=== PATIENT | female | born 1995 | race Caucasian/White ===

== ENCOUNTER 2023-07-08 13:08 | Inpatient (IN) ==
[2023-07-08] MEDS ORDERED: LIDOCAINE 1% LOCAL 20 ML VIAL INFIL PRN (14:25)
[2023-07-08] MEDS ORDERED: OXYTOCIN 30 UNITS/NSS 30 UNITS/500 ML BAG IV PRN ×2 (14:25)
--- NOTE | 2023-07-08 14:30 | History & Physical Report ---
Date of Service July 08, 2023 Assessment & Plan (1) Normal labor: (2) Thick meconium stained amniotic fluid: Plan admit, labs, iv. desires epidural, pit aug if needed reviewed with pt and family. Mec stained fluid reviewed. fhts categ 1 History of Present Illness Chief Complaint: leaking fluid since noon Primary Care Provider: JUAN FRANCISCO PCP 28yo at 40+wks cherelle presents to L&D with SROM, green fluid at noon. Patient is here with her sister, who does interpreting for her. She was interviewed by nursing using ipad director of archives. Noted leaking of fluid at noon. Feels her ctx are q3m. ?bloody fluid but nursing feels mec stained. +FM PNC c/b 1. hypothyroid PNL rh pos, ri, ,gbs neg OBH: g1 GYNH: nl paps no stds Allergies Allergy/AdvReac Type Severity Reaction Status Date / Time No Known Allergies Allergy Verified 07/08/23 13:52 Home Medications Medication Instructions Recorded Confirmed Type levothyroxine 75 mcg tablet 75 mcg PO DAILY #30 tabs 04/30/23 07/08/23 Rx metronidazole 500 mg tablet 500 mg PO BID 7 days #14 tabs 06/11/23 07/03/23 Rx Patient History Medical History (Updated 07/08/23 @ 14:29 by Coni Mcneil MD, FACOG) No known health problems Family History (Updated 04/17/23 @ 10:58 by Saadia Bowser) Mother Diabetes Social History (Updated 04/17/23 @ 11:00 by Saadia Bowser) Smoking Status: Never smoker Do You Dip or Chew Tobacco: No; Hx Alcohol Use: No Hx Substance Use: No Preferred Language: Carlee Communication Ability: 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 Beliefs That Will Affect Care: None marital status: marital status details: Spouse: Trever same number Current Living Situation: Spouse Current Living Situation Comment: Trever Mcneil current occupational status: unemployed Other Information That Helps Us Care for You: No Feels Safe at Home: Yes Safety Concerns: Feels Safe At This Time Assistive Devices: None Review of Systems as per Subjective / HPI Physical Exam Constitutional: WD/WN, vitals as above Respiratory: normal respiratory effort, lungs clear to auscultation Cardiovascular: Rate/Rhythm: regular rate and regular rhythm Gastrointestinal (Abdomen): soft gravid nt efw 7-8# Musculoskeletal: no edema nontender calves Neurologic: grossly normal Psychiatric: A+Ox3, euthymic affect Genitourinary: Manual OB Exam: + cervical dilation (3-4cm), + cervical effacement 90% and + station -2 OB Exam Monitor Tracing: + external FHT monitor used, + external uterine monitor used (q2-3), + category I and + normal FHT variability gross srom with mec fluid noted, thick/particulate Results & Data Vital Signs (Past 12 Hours) Vital Signs Pulse BP 07/08/23 13:39 84 123/75 Coding Level of Care Code None Diagnoses Normal labor O80; Z37.9 Thick meconium stained amniotic fluid P96.83
[2023-07-08 15:06] LABS: Hematocrit (blood only) 35.8 % (37.0-47.0); Hemoglobin 11.3 g/dl (12.0-16.0); Mean Corpuscular Hemoglobin 23.8 pg (25.0-34.0); Mean Corpuscular Hgb Conc 31.6 g/dL (32.0-36.0); Mean Corpuscular Volume 75.5 fL (80.0-100.0); Mean Platelet Volume 10.4 fL (9.4-12.4); Platelet Count 548 K/uL (130-400); RDW Coefficient of Variation 14.6 % (11.5-14.5); RDW Standard Deviation 39.7 fL (36.4-46.3); Red Blood Count 4.74 M/uL (4.20-5.40); White Blood Count 12.42 K/ul (4.8-10.8)
[2023-07-08] MEDS: LACTATED RINGER'S 1,000 ML IV PRN ×2 (15:25→18:00)
[2023-07-08] MEDS ORDERED: fentANYL 2 MCG/ML BUPIVacaine 0.125%-NSS 100ML BAG ONE (15:27)
[2023-07-08] MEDS ORDERED: BUPIVACAINE 0.25% PF 30 ML VIAL ONE (15:27)
[2023-07-08] MEDS ORDERED: LIDOCAINE 2%/EPINEPHRINE 1:200,000 20 ML PF ONE (15:27)
[2023-07-08] MEDS ORDERED: SODIUM CHLORIDE 0.9% PF INJ 10 ML VIAL ONE (15:27)
[2023-07-08] MEDS ORDERED: fentaNYL citrate PF 100 MCG/2 ML VIAL ONE (15:27)
[2023-07-08] MEDS ORDERED: ePHEDrine sulfate 50 MG/ML AMP ONE (15:27)
--- NOTE | 2023-07-08 15:49 | Anesthesiology Consultation ---
Date of Service July 08, 2023 Assessment & Plan (1) Encounter for pre-operative examination: Chart Review Chart Review: Acceptable Risk for Labor Epidural History Height/Weight Height: 5 ft 4 in Weight: 77.564 kg Allergies Allergy/AdvReac Type Severity Reaction Status Date / Time No Known Allergies Allergy Verified 07/08/23 13:52 Medications Home Medications Medication Instructions Recorded Confirmed Last Taken levothyroxine 75 mcg tablet 75 mcg PO DAILY #30 tabs 04/30/23 07/08/23 07/07/23 06:00 Active Medications Generic Name Dose Route Start Last Admin Trade Name Freq PRN Reason Stop Dose Admin Lactated Ringer's 1,000 mls @ 125 mls/hr 07/08/23 14:25 07/08/23 15:25 Lr IV 07/10/23 14:24 999 mls/hr .Q8H PRN Administration L&D Protocol Protocol Past Medical History Medical History No known health problems Past Family History Family History Mother Diabetes Social History Smoking Status: Never smoker Do You Dip or Chew Tobacco: No Hx Alcohol Use: No Hx Substance Use: No Physical Exam Vital Signs Last Vital Signs Pulse 84 07/08/23 13:39 BP 123/75 07/08/23 13:39 Testing Laboratory Results 07/08/23 14:45
[2023-07-08] MEDS ORDERED: fentANYL 2 MCG/ML BUPIVacaine 0.125%-NSS 100ML BAG EPI PRN (16:19)
[2023-07-08] MEDS ORDERED: BUPIVACAINE 0.25% PF 30 ML VIAL EPI STA (16:19)
[2023-07-08] MEDS ORDERED: ROPIVACAINE 0.5% PF 5 MG/ML 20 ML VIAL EPI PRN (16:19)
[2023-07-08] MEDS ORDERED: LIDOCAINE 2%/EPINEPHRINE 1:200,000 20 ML PF EPI STA (16:19)
[2023-07-08] MEDS ORDERED: ePHEDrine sulfate 50 MG/ML AMP IV PRN (16:19)
[2023-07-08] MEDS ORDERED: fentaNYL citrate PF 100 MCG/2 ML VIAL EPI PRN (16:19)
[2023-07-08] MEDS ORDERED: LIDOCAINE 2% MPF LOCAL 5 ML VIAL EPI PRN (16:19)
[2023-07-08] MEDS ORDERED: NALOXONE HCL 1 MG in SODIUM CHLORIDE 0.9% 1,000 ML IV PRN (16:19)
[2023-07-08] MEDS ORDERED: NALOXONE HCL 0.4 MG/1 ML VIAL/CARP IV PRN (16:19)
[2023-07-08] MEDS ORDERED: ONDANSETRON INJ 2 MG/ML 2 ML VIAL IV PRN (16:19)
[2023-07-08] MEDS ORDERED: SODIUM CHLORIDE 0.9% PF INJ 10 ML VIAL EPI STA (16:19)
[2023-07-08] MEDS ORDERED: fentaNYL citrate PF 100 MCG/2 ML VIAL EPI STA (16:19)
[2023-07-08] MEDS ORDERED: SODIUM CHLORIDE 0.9% PF INJ 10 ML VIAL EPI PRN (16:19)
[2023-07-08] MEDS ORDERED: BUPIVACAINE 0.25% PF 30 ML VIAL EPI PRN (16:19)
--- NOTE | 2023-07-08 19:35 | Labor Progress Brief Note ---
Date of Service July 08, 2023 Subjective comfortable with epidural Assessment & Plan (1) Normal labor: (2) Thick meconium stained amniotic fluid: Plan good cx change. fhts categ 1. spont labor Admission and Anticipated Discharge Date Admission Date: July 08, 2023 Physical Exam Constitutional: WD/WN, vitals as above Genitourinary: Manual OB Exam: + cervical dilation 6 cm, + cervical effacement 100%, + station 0 and + amniotic fluid (forebag arom) meconium Results & Data Vital Signs (Past 12 Hours) Vital Signs Temp Pulse Resp BP Pulse Ox 07/08/23 19:28 98 H 99 07/08/23 19:23 92 H 98 07/08/23 19:18 100 H 98 07/08/23 19:16 88 141/69 H 07/08/23 19:13 89 99 07/08/23 19:12 98.8 F 18 07/08/23 19:08 107 H 99 07/08/23 19:03 89 98 07/08/23 19:01 96 H 119/57 L 07/08/23 18:58 95 H 98 07/08/23 18:53 92 H 99 07/08/23 18:48 105 H 99 07/08/23 18:45 90 121/73 07/08/23 18:43 103 H 100 07/08/23 18:38 93 H 100 07/08/23 18:33 93 H 100 07/08/23 18:30 20 07/08/23 18:30 20 07/08/23 18:28 93 H 99 07/08/23 18:23 89 100 07/08/23 18:18 95 H 100 07/08/23 18:16 93 H 144/60 H 07/08/23 18:13 96 H 100 07/08/23 18:08 98 H 100 07/08/23 18:03 100 H 100 07/08/23 17:58 89 100 07/08/23 17:53 95 H 100 07/08/23 17:48 100 H 100 07/08/23 17:43 103 H 99 07/08/23 17:38 90 100 07/08/23 17:33 86 99 07/08/23 17:30 84 20 113/73 07/08/23 17:28 88 100 07/08/23 17:23 71 100 07/08/23 17:18 84 100 07/08/23 17:15 65 107/68 07/08/23 17:13 74 100 07/08/23 17:08 81 100 07/08/23 17:03 90 100 07/08/23 17:02 92 H 92 07/08/23 16:58 100 07/08/23 16:58 90 07/08/23 16:58 82 109/71 07/08/23 16:54 83 108/68 07/08/23 16:53 79 100 07/08/23 16:48 92 H 104/63 100 07/08/23 16:44 77 108/65 07/08/23 16:43 80 100 07/08/23 16:38 91 H 99 07/08/23 16:37 76 92/52 L 07/08/23 16:33 82 100 07/08/23 16:32 76 96/56 L 07/08/23 16:30 98.1 F 80 20 93/52 L 07/08/23 16:28 99 07/08/23 16:28 89 07/08/23 16:28 77 92/52 L 07/08/23 16:26 87 97/53 L 07/08/23 16:25 96 H 93/50 L 07/08/23 16:23 99 07/08/23 16:23 80 07/08/23 16:23 91 H 95/56 L 07/08/23 16:20 89 108/53 L 07/08/23 16:18 82 100 07/08/23 16:17 102 H 115/59 L 07/08/23 16:14 95 H 124/82 07/08/23 16:13 91 H 100 07/08/23 16:08 97 H 100 07/08/23 16:03 98 H 99 07/08/23 16:01 89 88 L 07/08/23 15:58 99 H 100 07/08/23 15:53 104 H 20 100 07/08/23 13:39 84 123/75 Coding Level of Care Code None Diagnoses Normal labor O80; Z37.9 Thick meconium stained amniotic fluid P96.83
[2023-07-09] MEDS: LACTATED RINGER'S 1,000 ML IV PRN (00:59)
[2023-07-09] MEDS ORDERED: LIDOCAINE 2%/EPINEPHRINE 1:200,000 20 ML PF ONE (02:43)
[2023-07-09] MEDS ORDERED: ROPIVACAINE 0.5% 5 MG/ML 30 ML VIAL ONE (02:43)
--- NOTE | 2023-07-09 02:49 | Anesthesia Procedure Note ---
Date of Service July 09, 2023 Anesthesia Epidural Re-Dose Vital Signs Temp Pulse Resp BP Pulse Ox 36.8 C 106 H 18 113/55 L 97 07/09/23 00:25 07/09/23 02:43 07/09/23 00:25 07/09/23 02:01 07/09/23 02:43 Notes Pain Intensity: 0 Dilatation (cm): 9.0 Effacement (%): 100 Called by nursing to evaluate epidural as the patient is having increased pain. The epidural was re-dosed with the following medications (all medications via epidural route) after negative aspiration of the epidural catheter for CSF/HEME 1.2% lidocaine and 0.2% ropivacaine 7ml After Epidural Re-Dose Mental Status: alert / awake / arousable Pain: improving with treatment Airway Patency, RR, SpO2: stable & adequate BP & HR: stable & adequate Additional Notes: fhr stable
--- NOTE | 2023-07-09 03:32 | Labor Progress Brief Note ---
Date of Service July 09, 2023 Subjective pt was just sleeping but now complaining of pain and pressure. advised that pressure can be normal as labor progresses. nursing had that pt was 10cm, see my exam below. her sister does speak for pt alot. in fact, pt not even responding to my questions that sister is to translate to her, sister just speaks, therefore advised hard rock miner. while hard rock miner being obtained had to attend delivery and so nursing discussed pt pain level see below. of note ctx were spaced out so pit aug recently started. Assessment & Plan (1) Normal labor: (2) Thick meconium stained amniotic fluid: Plan discussed exam findings, and need for pitocin augmentation. that has recently begun. not ready to push yet. the sister keeps bringing up c/s and when i ask her where that idea is coming from she says its the patient. i explained no medical need for c/s at this time but she can demand c/s electively but if she is complaining of pain now, a c/s with an incision and surgery will likely be more painful and higher risks for bleeding and infection. she smiles at me and i don't know who is relaying pt thoughts to me accurately which is why i wanted portable power tool repairer ipad. after performing another delivery i checked in with pt nurse who did use the portable power tool repairer ipad but says the sister still tried to talk for the patient. ultimately they are aware that need more labor, will use pitocin, no medical need for c/s at this time, pushing will be work and pressure can be normal but due to upper abd pain with ctx, we did have anesth come to try to manage pt pain better. epidural rebolus given. fhts categ 1. has been mec stained fluid--no change. c/w pit. Admission and Anticipated Discharge Date Admission Date: July 08, 2023 Physical Exam Constitutional: WD/WN, vitals as above Genitourinary: Manual OB Exam: + cervical dilation 9 cm, + cervical effacement 100% and + station 0 OB Exam Monitor Tracing: + external FHT monitor used, + external uterine monitor used (q2-4 pit just started. ), + category I and + normal FHT variability Results & Data Vital Signs (Past 12 Hours) Vital Signs Temp Pulse Resp BP Pulse Ox 07/09/23 03:24 112 H 107/67 07/09/23 03:23 114 H 96 01/10/24 03:18 159 H 98 07/09/23 03:13 130 H 99 07/09/23 03:08 98 07/09/23 03:08 116 H 07/09/23 03:08 120 H 119/69 07/09/23 03:03 113 H 98 07/09/23 02:59 18 07/09/23 02:59 99.0 F 18 07/09/23 02:58 121 H 96 07/09/23 02:53 125 H 98 07/09/23 02:52 126 H 121/87 07/09/23 02:50 108 H 120/78 07/09/23 02:48 115 H 99 07/09/23 02:47 109 H 118/74 07/09/23 02:43 106 H 97 07/09/23 02:38 113 H 98 07/09/23 02:33 112 H 98 07/09/23 02:28 118 H 98 07/09/23 02:23 115 H 98 07/09/23 02:18 111 H 98 07/09/23 02:13 114 H 99 07/09/23 02:08 118 H 97 07/09/23 02:03 113 H 98 07/09/23 02:01 111 H 113/55 L 07/09/23 01:58 116 H 98 07/09/23 01:53 111 H 97 07/09/23 01:48 119 H 98 07/09/23 01:47 112 H 120/70 07/09/23 01:43 117 H 97 07/09/23 01:38 121 H 98 07/09/23 01:33 119 H 96 07/09/23 01:31 103 H 116/64 07/09/23 01:28 112 H 97 07/09/23 01:23 114 H 97 07/09/23 01:18 110 H 96 07/09/23 01:16 105 H 117/75 07/09/23 01:13 102 H 97 07/09/23 01:08 98 H 97 07/09/23 01:03 106 H 96 07/09/23 01:00 105 H 121/73 07/09/23 00:58 105 H 97 07/09/23 00:53 102 H 97 07/09/23 00:48 117 H 96 07/09/23 00:47 108 H 117/74 07/09/23 00:43 110 H 97 07/09/23 00:38 98 H 97 07/09/23 00:33 100 H 97 07/09/23 00:31 108 H 118/74 07/09/23 00:28 103 H 97 07/09/23 00:25 98.2 F 18 07/09/23 00:23 106 H 97 07/09/23 00:18 113 H 98 07/09/23 00:16 116 H 129/71 07/09/23 00:13 128 H 98 07/09/23 00:08 130 H 100 07/09/23 00:03 135 H 95 07/09/23 00:00 107 H 115/57 L 07/08/23 23:58 128 H 100 07/08/23 23:53 104 H 99 07/08/23 23:48 102 H 99 07/08/23 23:45 103 H 122/65 07/08/23 23:43 101 H 100 07/08/23 23:38 117 H 100 07/08/23 23:33 92 H 100 07/08/23 23:31 93 H 121/65 07/08/23 23:28 110 H 100 07/08/23 23:23 103 H 100 07/08/23 23:18 95 H 99 07/08/23 23:15 99 H 117/57 L 07/08/23 23:13 97 H 100 07/08/23 23:08 88 99 07/08/23 23:03 100 H 100 07/08/23 23:01 95 H 126/76 07/08/23 22:58 101 H 99 07/08/23 22:53 102 H 100 07/08/23 22:52 18 07/08/23 22:52 98.8 F 18 07/08/23 22:48 102 H 99 07/08/23 22:46 99 H 113/67 07/08/23 22:43 95 H 99 07/08/23 22:38 103 H 98 07/08/23 22:33 98 H 98 07/08/23 22:30 98 H 108/73 07/08/23 22:28 101 H 98 07/08/23 22:23 100 H 98 07/08/23 22:18 102 H 99 07/08/23 22:15 104 H 117/78 07/08/23 22:13 98 H 99 07/08/23 22:08 101 H 99 07/08/23 22:03 98 H 99 07/08/23 22:01 98 H 115/73 07/08/23 21:58 99 H 98 07/08/23 21:53 98 H 98 07/08/23 21:48 99 H 99 07/08/23 21:47 110 H 106/74 07/08/23 21:43 107 H 99 07/08/23 21:38 105 H 98 07/08/23 21:33 101 H 99 07/08/23 21:31 98 H 108/71 07/08/23 21:28 106 H 98 07/08/23 21:23 106 H 100 07/08/23 21:18 102 H 98 07/08/23 21:16 96 H 97/52 L 07/08/23 21:15 18 07/08/23 21:15 98.8 F 18 07/08/23 21:13 96 H 98 07/08/23 21:08 93 H 98 07/08/23 21:03 97 H 98 07/08/23 21:01 102 H 106/59 L 07/08/23 20:58 91 H 98 07/08/23 20:53 85 97 07/08/23 20:48 85 98 07/08/23 20:46 84 101/57 L 07/08/23 20:43 84 98 07/08/23 20:38 83 99 07/08/23 20:33 91 H 99 07/08/23 20:32 93 H 104/64 07/08/23 20:28 89 99 07/08/23 20:23 94 H 99 07/08/23 20:18 90 98 07/08/23 20:15 90 105/74 07/08/23 20:13 87 99 07/08/23 20:08 92 H 97 07/08/23 20:03 91 H 98 07/08/23 20:01 87 100/53 L 07/08/23 19:58 93 H 98 07/08/23 19:53 92 H 97 07/08/23 19:48 92 H 98 07/08/23 19:46 89 102/56 L 07/08/23 19:43 93 H 99 07/08/23 19:38 90 98 07/08/23 19:33 93 H 99 07/08/23 19:28 98 H 99 07/08/23 19:23 92 H 98 07/08/23 19:18 100 H 98 07/08/23 19:16 88 141/69 H 07/08/23 19:13 89 99 07/08/23 19:12 98.8 F 18 07/08/23 19:08 107 H 99 07/08/23 19:03 89 98 07/08/23 19:01 96 H 119/57 L 07/08/23 18:58 95 H 98 07/08/23 18:53 92 H 99 07/08/23 18:48 105 H 99 07/08/23 18:45 90 121/73 07/08/23 18:43 103 H 100 07/08/23 18:38 93 H 100 07/08/23 18:33 93 H 100 07/08/23 18:30 20 07/08/23 18:30 20 07/08/23 18:28 93 H 99 07/08/23 18:23 89 100 07/08/23 18:18 95 H 100 07/08/23 18:16 93 H 144/60 H 07/08/23 18:13 96 H 100 07/08/23 18:08 98 H 100 07/08/23 18:03 100 H 100 07/08/23 17:58 89 100 07/08/23 17:53 95 H 100 07/08/23 17:48 100 H 100 07/08/23 17:43 103 H 99 07/08/23 17:38 90 100 07/08/23 17:33 86 99 07/08/23 17:30 84 20 113/73 07/08/23 17:28 88 100 07/08/23 17:23 71 100 07/08/23 17:18 84 100 07/08/23 17:15 65 107/68 07/08/23 17:13 74 100 07/08/23 17:08 81 100 07/08/23 17:03 90 100 07/08/23 17:02 92 H 92 07/08/23 16:58 100 07/08/23 16:58 90 07/08/23 16:58 82 109/71 07/08/23 16:54 83 108/68 07/08/23 16:53 79 100 07/08/23 16:48 92 H 104/63 100 07/08/23 16:44 77 108/65 07/08/23 16:43 80 100 07/08/23 16:38 91 H 99 07/08/23 16:37 76 92/52 L 07/08/23 16:33 82 100 07/08/23 16:32 76 96/56 L 07/08/23 16:30 98.1 F 80 20 93/52 L 07/08/23 16:28 99 07/08/23 16:28 89 07/08/23 16:28 77 92/52 L 07/08/23 16:26 87 97/53 L 07/08/23 16:25 96 H 93/50 L 07/08/23 16:23 99 07/08/23 16:23 80 07/08/23 16:23 91 H 95/56 L 07/08/23 16:20 89 108/53 L 07/08/23 16:18 82 100 07/08/23 16:17 102 H 115/59 L 07/08/23 16:14 95 H 124/82 07/08/23 16:13 91 H 100 07/08/23 16:08 97 H 100 07/08/23 16:03 98 H 99 07/08/23 16:01 89 88 L 07/08/23 15:58 99 H 100 07/08/23 15:53 104 H 20 100 Coding Level of Care Code None Diagnoses Normal labor O80; Z37.9 Thick meconium stained amniotic fluid P96.83
--- NOTE | 2023-07-09 07:56 | Delivery Summary ---
Vaginal Delivery Summary Date of Service July 09, 2023 Vaginal Delivery Summary and 3rd Degree LAC (partial) The patient dilated to complete and began 2nd stage. She was pushing effectively, however baby with deep variables some with slow return to baseline for about 1hr. She was making progress but also complained of maternal exhaustion and requests vacuum assistance. Informed consent obtained to proceed with vacuum assistance. Bladder drained under sterile conditions for <50cc. With spontaneous next push pt delivered without assistance a viable male Apgars 8 and 9 via over partial third degree perineal laceration. Mouth and nose bulb suctioned at perineum. Thick meconium as previously noted, was seen. Shoulders and body delivered with ease. was vigorous and crying at . Cord clamped at 30 seconds of life and infant to maternal abdomen where the cord was then doubly clamped and cut. Placenta delivered spontaneously and intact, three-vessel cord. Hemostasis achieved with dilute pitocin and uterine massage. Laceration was repaired in layers with 2-0, 3-0 vicryl. Capsule of anal sphincter reinforced with 2-0 vicryl interrupted sutures. Cervix and sulci intact. EBL 300 cc. Mother and baby stable in recovery. [facility] [place] Charge Delivery Type Details: and 3rd Degree LAC (partial)
[2023-07-09] MEDS ORDERED: HYDROCORTISONE ACETATE 25 MG SUPP PR PRN (08:06)
[2023-07-09] MEDS ORDERED: ACETAMINOPHEN 325 MG TAB PO PRN (08:06)
[2023-07-09] MEDS ORDERED: bisacodyL 10 MG SUPP PR PRN (08:06)
[2023-07-09] MEDS ORDERED: oxyCODONE/ACETAMINOPHEN 5mg/325mg TAB PO PRN (08:06)
[2023-07-09] MEDS ORDERED: DIPHTHERIA/TETANUS/PERTUSSIS Vaccine (Tdap, Age 7+yrs) 0.5mL SYR/VL IM ONE (08:06)
[2023-07-09] MEDS ORDERED: BENZOCAINE 20% SPRY 85 APPLN/85 GM CAN EXT PRN (08:06)
[2023-07-09] MEDS ORDERED: OXYTOCIN 30 UNITS/NSS 30 UNITS/500 ML BAG IV PRN (08:06)
[2023-07-09] MEDS: DOCUSATE SODIUM 100 MG CAP PO SCH ×2 (08:39→19:31)
[2023-07-09] MEDS: LEVOTHYROXINE SODIUM 75 MCG TABLET PO SCH (08:39)
[2023-07-09] MEDS: PRENATAL VITAMIN 1 TAB PO SCH (08:39)
[2023-07-09] MEDS: FAMOTIDINE 20 MG TAB PO SCH ×2 (09:10→19:31)
[2023-07-09] MEDS: OXYTOCIN 20 UNITS/LR 1,002 ML IV SCH ×2 (09:10→18:30)
--- NOTE | 2023-07-09 10:22 | Anesthesia Procedure Note ---
Date of Service July 09, 2023 Anesthesia Post Epidural Note Vital Signs Vital Signs: Temp Pulse Resp BP Pulse Ox 36.9 C 131 H 20 102/58 L 100 07/09/23 07:00 07/09/23 09:53 07/09/23 07:00 07/09/23 09:53 07/09/23 07:23 Notes Mental Status: alert / awake / arousable Nausea / Vomiting: adequately controlled Pain: adequately controlled Airway Patency, RR, SpO2: stable & adequate BP & HR: stable & adequate Hydration State: stable & adequate Neuraxial Anesthesia: was administered and sensory block is resolving Anesthetic Complications: no major complications apparent and Pt Satisfied with anesthetic care Epidural: Removed without complications and With tip intact
[2023-07-09] MEDS: IBUPROFEN 600 MG TAB PO PRN (18:21)
[2023-07-10] MEDS: IBUPROFEN 600 MG TAB PO PRN ×3 (04:17→20:22)
[2023-07-10 06:43] LABS: Hematocrit (blood only) 17.1 % (37.0-47.0); Hemoglobin 5.8 g/dl (12.0-16.0)
[2023-07-10 07:13] LABS: Mean Corpuscular Hemoglobin 24.5 pg (25.0-34.0); Platelet Count 361 K/uL (130-400); RDW Coefficient of Variation 15.1 % (11.5-14.5); RDW Standard Deviation 41.6 fL (36.4-46.3); Red Blood Count 2.41 M/uL (4.20-5.40); White Blood Count 21.46 K/ul (4.8-10.8)
[2023-07-10] MEDS: LEVOTHYROXINE SODIUM 75 MCG TABLET PO SCH (07:36)
--- NOTE | 2023-07-10 08:00 | Obstetrical Progress Note ---
Date of Service <Ai Pascual MD - Last Filed: 07/10/23 08:00> July 10, 2023 Assessment & Plan <Ai Pascual MD - Last Filed: 07/10/23 08:00> (1) Encounter for care after hospital delivery: Patient with the above mentioned history and findings was evaluated at bedside and found awake, alert, oriented in all spheres, afebrile, and in no acute distress. Vital signs showed no fever and blood pressures remained stable, but several episodes of tachycardia recorded. Her blood type is O positive and most recent hemoglobin is low at 5.8 g/dL. Lab reported this may have been an error, which may be possible since patient is not experiencing any symptoms of anemia such as lightheadedness or fatigue. However, VS showing tachycardia. Will repeat CBC. If Hgb value is truly low (i.e. <7), consider transfusion of PRBC. Will also order bilateral LE US to rule out DVT given calf tenderness. She is GBS negative and rubella immune. Otherwise, patient is meeting the desired milestones for her pp course. Will continue routine pp care. All questions answered. <Tami Harrison MD - Last Filed: 07/10/23 08:27> (1) Encounter for care after hospital delivery: Subjective <Ai Pascual MD - Last Filed: 07/10/23 08:00> Sera is a 28y/o female who is now PPD # 1 following at 40+ weeks. Reports feeling well overall this morning. Refers mild abdominal cramping & 4- 5/10 pain well managed on analgesics. Voiding spontaneously. Has passed flatus but no bowel movements yet. Tolerating meals overnight and able to ambulate [place] e. Some persistent lochia with some improvement this morning. . Refers having bilateral lower extremity tenderness both at rest and with palpation. Denies other symptoms such as lightheadedness, dizziness, palpitations, headaches, fevers, chills, chest pain, SOB, or any other symptom. Constitutional: no fever, no chills or no sweats Denies shortness of breath or difficulty breathing Cardiovascular: no chest pain or no palpitations Breast: no breast pain Genitourinary (female): no dysuria Neurologic: no headache(s) Denies changes in vision Physical Exam <Ai Pascual MD - Last Filed: 07/10/23 08:00> General: Alert. Oriented to person, time, and place. Afebrile. No acute distress. Eyes: pupils equal and reactive to light bilaterally, extraocular movements intact. Cardiac: Regular rate and rhythm, no murmurs/rubs/gallops. Respiratory: Clear to auscultation bilaterally a/p, no wheezes/rales/rhonchi. No increased work of breathing. Symmetrical chest rise. No respiratory distress. Abdomen: Soft, nontender, nondistended. Bowel sounds present. Uterus: Uterine fundus firm, moderately tender, and palpable at umbilicus. Lower Extremities: No lower extremity edema or swelling. Bilateral calf pain on palpation. Psych: Euthymic affect. Mood and affect congruence. Regular speech rate and content. Results & Data <Ai Pascual MD - Last Filed: 07/10/23 08:00> Vital Signs (Past 12 Hours) Vital Signs Temp Pulse Resp BP O2 Del Method 07/10/23 04:14 36.7 C 123 H 14 130/83 Room Air 07/10/23 00:00 36.5 C 114 H 12 92/59 L Room Air Supervising Physician <Tami Harrison MD - Last Filed: 07/10/23 08:27> Co-Signing Physician Notes Resident Physician Supervision Note: I interviewed and examined the patient. Discussed with Dr. Pascual and agree with findings and plan as documented in the note. Any exceptions or clarifications are listed here: PP1 s/p . Notes some discomfort at perineum but manageable w/ meds. Notes calf pain bilaterally. VSS, exam benign. LE with minimal swelling and no erythema but tender - will get duplex. H/H this am is 5.8, lab told nursing they were concerned for falsely low so will recheck but if true will discuss blood transfusion Documented By: Tami Harrison MD
[2023-07-10 08:50] LABS: Hematocrit (blood only) 17.9 % (37.0-47.0); Hemoglobin 5.8 g/dl (12.0-16.0); Mean Corpuscular Hemoglobin 24.6 pg (25.0-34.0); Mean Corpuscular Hgb Conc 32.4 g/dL (32.0-36.0); Mean Corpuscular Volume 75.8 fL (80.0-100.0); Mean Platelet Volume 10.9 fL (9.4-12.4); Platelet Count 370 K/uL (130-400); RDW Coefficient of Variation 15.1 % (11.5-14.5); RDW Standard Deviation 40.9 fL (36.4-46.3); Red Blood Count 2.36 M/uL (4.20-5.40); White Blood Count 20.32 K/ul (4.8-10.8)
[2023-07-10] MEDS: DOCUSATE SODIUM 100 MG CAP PO SCH ×2 (08:56→20:22)
[2023-07-10] MEDS: PRENATAL VITAMIN 1 TAB PO SCH (08:56)
[2023-07-10 09:05] LABS: Mean Corpuscular Hgb Conc 33.9 g/dL (32.0-36.0)
[2023-07-10] MEDS ORDERED: SODIUM CHLORIDE 0.9% 250 ML IV PRN (09:20)
[2023-07-10] MEDS: FAMOTIDINE 20 MG TAB PO SCH ×2 (09:31→20:22)
--- NOTE | 2023-07-10 10:40 | Ultrasound Report ---
ULTRASOUND BILATERAL LOWER EXTREMITY VENOUS CLINICAL HISTORY: Leg pain. COMPARISON STUDY: No priors. TECHNIQUE: Real-time, grayscale, and color Doppler sonography of the deep veins of the right and left lower extremity was performed from the inguinal crease to the calf. Compression and augmentation wer e utilized. FINDINGS: There is no sonographic evidence of deep venous thrombosis identified in the right or left lower extremity. The common femoral, superficial femoral, and popliteal veins are patent and normally compressible bilaterally. The greater saphenous vein and the profunda femoris vein at the junction w ith the common femoral vein are clear in both legs. The visualized calf veins are patent bilaterally. IMPRESSION: There is no sonographic evidence of deep venous thrombosis identified in the right or lef t lower extremity. ACT 112: Negative or not required by law. Electronically signed by: Akhil Crockett M.D. 07/10/2023 10:39 AM
[2023-07-10 17:33] VITALS: O2SAT 100
[2023-07-10] MEDS ORDERED: POLYETHYLENE (MIRALAX) 17 GM PACK PO PRN (19:34)
[2023-07-11] MEDS: LEVOTHYROXINE SODIUM 75 MCG TABLET PO SCH (05:57)
[2023-07-11 06:12] LABS: Hematocrit (blood only) 26.1 % (37.0-47.0); Hemoglobin 8.9 g/dl (12.0-16.0)
--- NOTE | 2023-07-11 07:32 | Obstetrical Progress Note ---
Date of Service July 11, 2023 Assessment & Plan (1) Encounter for care after hospital delivery: Patient with the above mentioned history and findings was evaluated at bedside and found awake, alert, oriented in all spheres, afebrile, and in no acute distress. Vital signs showed no fever and blood pressures remained stable, but several episodes of tachycardia recorded. Her blood type is O positive and most recent hemoglobin is low at 8.9 g/dL after transfusion of 2 units of PRBC. VSS and not showing episodes of tachycardia since transfusion was completed. bilateral LE US also negative for DVT. She is GBS negative and rubella immune. Overall, patient is doing well clinically and meeting the desired milestones. Since she is clinically and hemodynamically stable, will discharge today. she was counseled to make an appointment with her OB in 6 weeks for her routine pp evaluation. Discharge instructions discussed. All questions answered. Jolene Zamora is a 28y/o female who is now PPD # 2 following at 40+ weeks. Reports feeling well overall this morning. Refers mild abdominal cramping & 7/10 pain more marked in vaginal area that she refers is less intense compared to yesterday and is well managed on analgesics. Voiding spontaneously. Has passed flatus but has had bm. Tolerating meals overnight and able to ambulate some. Some persistent lochia with some improvement this morning. . Denies other symptoms such as lightheadedness, dizziness, palpitations, headaches, fevers, chills, chest pain, SOB, or any other symptom. Constitutional: no fever, no chills or no sweats Denies shortness of breath or difficulty breathing Cardiovascular: no chest pain or no palpitations Breast: no breast pain Genitourinary (female): no dysuria Neurologic: no headache(s) Denies changes in vision Physical Exam General: Alert. Oriented to person, time, and place. Afebrile. No acute distress. Eyes: pupils equal and reactive to light bilaterally, extraocular movements intact. Cardiac: Regular rate and rhythm, no murmurs/rubs/gallops. Respiratory: Clear to auscultation bilaterally a/p, no wheezes/rales/rhonchi. No increased work of breathing. Symmetrical chest rise. No respiratory distress. Abdomen: Soft, nontender, nondistended. Bowel sounds present. Uterus: Uterine fundus firm, moderately tender, and palpable at umbilicus. Lower Extremities: No lower extremity edema or swelling. Bilateral calf pain on palpation relatively unchanged compared to yesterday. Psych: Euthymic affect. Mood and affect congruence. Regular speech rate and content. Results & Data Vital Signs (Past 12 Hours) Vital Signs Temp Pulse Resp BP Pulse Ox O2 Del Method 07/11/23 03:00 36.5 C 87 18 107/74 100 Room Air 07/10/23 23:00 36.6 C 88 18 109/76 100 Room Air 07/10/23 20:30 36.6 C 89 18 105/70 100 Room Air
[2023-07-11 09:22] LABS: Ferritin 30.8 ng/ml (8-388)
[2023-07-11] MEDS: PRENATAL VITAMIN 1 TAB PO SCH (10:16)
[2023-07-11] MEDS: DOCUSATE SODIUM 100 MG CAP PO SCH (10:16)
[2023-07-11] MEDS: IBUPROFEN 600 MG TAB PO PRN (10:16)
[2023-07-11] MEDS: FAMOTIDINE 20 MG TAB PO SCH (10:32)
[2023-07-11 11:24] VITALS: BP 118/80; RESP 16; TEMP 98.1
[2023-07-11 11:26] VITALS: PULSE 87
== END 2023-07-11 11:45 | disposition home or self-care (01) | DRG 768 ==
LOC: OPB 13:08 → 4S1 13:12 → 4E2 07-09 10:19